=== PATIENT | female | born 1930 | race Caucasian/White ===

== ENCOUNTER 2019-01-01 11:56 | Inpatient (IN) | payer MEDICARE, MEDICAID ==
[~2019-01-01] VITALS: Ht 149.9 cm; Wt 64.0 kg
--- NOTE | 2019-01-01 12:07 | NUR ---
DONAL, FROM [facility]ULT DAY [facility]ARE, C/O ABD PAIN, ZOFRAN 4 MG GIVEN BY EMS, BS171. EPIGASTRIC PAIN 8/10 "FEELS HEAVY". DENIES SOB, DIZZINESS, WEAKNESS. SOME NAUSEA/VOMIT. NO ACUTE DISTRESS NOTED. SKIN INTACT. GREEK-SPEAKING. HOOKED TO MONITOR AND MADE COMFORTABLE. READY FOR EVAL.
--- NOTE | 2019-01-01 12:10 | NUR ---
DR RUDD AT BEDSIDE FOR EVAL
[2019-01-01] MEDS ORDERED: ONDANSETRON HCL/PF 4 MG/2 ML VIAL ONE (12:19)
[2019-01-01] MEDS ORDERED: MORPHINE SULFATE INJ 4 MG/ML DISP.SYRIN ONE (12:19)
[2019-01-01] MEDS ORDERED: MORPHINE SULFATE INJ 2 MG/ML DISP.SYRIN IV ONE (12:30)
[2019-01-01] MEDS ORDERED: IV NS 0.9% 500 ML BAG IV ONE (12:30)
[2019-01-01] MEDS ORDERED: ONDANSETRON HCL/PF 4 MG/2 ML VIAL IVP ONE (12:30)
[2019-01-01 12:37] LABS: BASOPHILS % (AUTO) 0.3 % (0.0-2.0); EOSINOPHILS % (AUTO) 0.5 % (0.0-6.0); HEMATOCRIT 41 % (33-45); HEMOGLOBIN 13.9 g/dL (11.5-14.8); LYMPHOCYTES # (AUTO) 1.4 /CMM (0.8-4.8); LYMPHOCYTES % (AUTO) 11.4 % (20.0-44.0); MEAN CORPUSCULAR HGB CONC 34 g/dl (31.0-36.0); MEAN CORPUSCULAR VOLUME 85 fL (82-100); MONOCYTES # (AUTO) 0.5 /CMM (0.1-1.30); MONOCYTES % (AUTO) 3.9 % (2.0-12.0); NEUTROPHILS # (AUTO) 10.4 /CMM (1.8-8.9); NEUTROPHILS % (AUTO) 83.9 % (43.0-81.0); PLATELET COUNT (AUTO) 255 /CMM (150-450); RED BLOOD CELL COUNT(AUTO) 4.77 MIL/uL (4.0-5.2); WHITE BLOOD COUNT (AUTO) 12.4 K/uL (4.3-11.0)
[2019-01-01 12:38] LABS: CALCIUM, SERUM 9.4 mg/dL (8.5-10.1); CARBON DIOXIDE 26 mmol/L (21-32); CHLORIDE 103 mmol/L (98-107); GLUCOSE 143 mg/dL (74-106); POTASSIUM 3.8 mmol/L (3.5-5.1); SODIUM SERUM 140 mmol/L (136-145); UREA NITROGEN, BLOOD 19 mg/dL (7-18)
[2019-01-01 12:45] LABS: ALANINE AMINOTRANSFERASE 48 U/L (12-78); ALBUMIN 4.1 g/dL (3.4-5.0); ALKALINE PHOSPHATASE 127 U/L (46-116); ASPARTATE AMINOTRANSFERASE 70 U/L (15-37); BILIRUBIN,DIRECT 0.7 mg/dL (0.0-0.2); BILIRUBIN,TOTAL 1.3 mg/dL (0.2-1.0); LIPASE 523 U/L (73-393); TOTAL PROTEIN, SERUM 8.1 g/dL (6.4-8.2)
--- NOTE | 2019-01-01 13:02 | NUR ---
CALL FOR UPDATE Juan Ramon, son-in-law,
--- NOTE | 2019-01-01 13:46 | NUR ---
CALLED FOR BED AND TURNED IN MOVE SHEET
[2019-01-01] MEDS ORDERED: PIPERACILLIN /TAZOBACTAM 3.375 G in IV D5W 50 ML IV ONE (14:00)
--- NOTE | 2019-01-01 14:10 | NUR ---
PT RESTING COMFORTABLY IN BED. NO COMPLAINTS AT THIS TIME. VSS.
[2019-01-01] MEDS ORDERED: PIPERACILLIN /TAZOBACTAM 3.375 G VIAL IV ONE (14:12)
[2019-01-01 14:19] LABS: APPEARANCE,URINE Cloudy (CLEAR); BILIRUBIN,URINE Negative (NEGATIVE); BLOOD, URINE Negative Ery/uL (NEGATIVE); KETONES,URINE Negative (NEGATIVE); LEUKOCYTE ESTERASE ,URINE Negative (NEGATIVE); NITRITE, URINE Negative (NEGATIVE); PROTEIN,URINE 100 mg/dl (NEGATIVE); UGLUCOSE Negative (NEGATIVE); UROBILINOGEN,URINE 0.2 EU/dL (0.2)
[2019-01-01 14:22] LABS: COLOR,URINE Light Yellow (YELLOW)
[2019-01-01 14:29] LABS: BACTERIA,URINE Many /HPF (None Seen); SQUAMOUS EPITHELIAL CELL,UR Rare /HPF (None Seen)
[2019-01-01 14:30] LABS: RBC,URINE 0-2 /HPF (0-2)
--- NOTE | 2019-01-01 14:46 | NUR ---
REPORT GIVEN TO RYAN GOLDSTEIN FOR
--- NOTE | 2019-01-01 14:53 | NUR ---
PT TAKEN TO FLOOR VIA WC
[2019-01-01] MEDS ORDERED: ASPI-1152 PO (15:05)
[2019-01-01] MEDS ORDERED: SIMV40TA5 PO (15:05)
[2019-01-01] MEDS ORDERED: ATEN25TA PO ×2 (15:05→22:57)
[2019-01-01] MEDS ORDERED: METF-440 PO (15:05)
[2019-01-01] MEDS ORDERED: CHOL100040 PO (15:05)
[2019-01-01 15:30] VITALS: BP 126/52
--- NOTE | 2019-01-01 15:30 | NUR ---
MS RN ADMITTING NOTES ADMITTED PT FROM ER WITH DX OF POSSIBLE CHOLECYSTITIS.ALERT AND CONFUSED.WITH HX OF DEMENTIA SAYING SHE WANTS TO GO HOME AND HER WILL PICK HER UP. ORIENTATION GIVEN IN THE UNIT AND USE OF CALL LIGHT. C/O SEVERE ABDOMINAL PAIN IN ER BUT DENIES ANY PAIN OR SOB AT THIS TIME.PT VOMITED 2X IN ER.DENIES FEELING NAUSEA/VOMITING AT THIS TIME.RESPIRATIONS NON LABORED IN ROOM AIR.AMBULATES WITH STANDBY ASSIST. WITH BRP WITH ASSIST.SKIN INTACT.CALL LIGHT PLACED WITHIN REACH.
[2019-01-01 16:00] VITALS: BP 126/52
--- NOTE | 2019-01-01 18:30 | NUR ---
PT COMFORTABLY SLEEPING IN BED DENIES ANY PAIN OR DISTRESS.PT VOMITED 4X IN SMALL AMOUNTS DURING THE SHIFT IN OUR UNIT BEFORE DINNER BUT DENIES ANY DISTRESS OR DISCOMFORT AFTER.BUT PT NOW IS SLEEPING.FAMILY IS AT BEDSIDE AND IS AWARE.WILL MONITOR.
[2019-01-01] MEDS ORDERED: ZOLPIDEM TARTRATE 5 MG TABLET PO PRN (19:00)
[2019-01-01] MEDS ORDERED: MAG HYDROX/AL HYDROX/SIMETH 30 ML UDC PO PRN (19:00)
[2019-01-01] MEDS ORDERED: ONDANSETRON HCL/PF 4 MG/2 ML VIAL IVP PRN (19:00)
[2019-01-01] MEDS ORDERED: Z GUARD REMEDY 2 OZ OINT TP PRN (19:00)
[2019-01-01] MEDS ORDERED: ACETAMINOPHEN 325 MG TABLET PO PRN (19:00)
[2019-01-01] MEDS ORDERED: MAGNESIUM HYDROXIDE 30 ML UDC PO PRN (19:00)
--- NOTE | 2019-01-01 19:20 | NUR ---
RN INITIAL NOTES: RECEIVED REPORT FROM TRISTON Lawrence RN. PT IN BED, AWAKE, A/O X2, ON RA RESPIRATION EVEN AND UNLABORED. PER REPORT, PT VOMITED 3X, IN ER. MET WITH FAMILY AT BED SIDE. SEEN BY DR NORMAN/KERRY, WITH ORDERS FOR CCHO DIET. PT ATE 25% OF MEAL FROM HOME. BLE OFFLOADED. SAFETY PRECAUTIONS FOR FALL INITIATED, CALL LIGHT IN REACH, WILL CONTINUE MONITORING PT.
[2019-01-01 20:00] VITALS: BP 113/66
[2019-01-01] MEDS: PIPERACILLIN /TAZOBACTAM 2.25 G in IV D5W 50 ML IV SCH (20:04)
[2019-01-01] MEDS: IV NS 0.9% 1,000 ML IV PRN (20:04)
--- NOTE | 2019-01-01 21:30 | NUR ---
RN NOTES: ASSISTED BY HAT CHECKER TO THE BATHROOM
--- NOTE | 2019-01-01 22:00 | NUR ---
rn notes: received call from patient's daughter, requesting to have her mother's blood sugar check
--- NOTE | 2019-01-01 22:09 | NUR ---
ACCU CHECK: BLOOD SUGAR CHECK AND RESULT IS 161
[2019-01-01] MEDS ORDERED: FENO54TA PO (22:57)
[2019-01-01] MEDS ORDERED: OLME20TA13 PO (22:57)
--- NOTE | 2019-01-01 23:00 | NUR ---
RN NOTES: SEEN PT SLEEPING AT THIS TIME, APPEARS CALM AND COMFORTABLE NO FACIAL GRIMACE NOTED
[2019-01-02] MEDS: PIPERACILLIN /TAZOBACTAM 2.25 G in IV D5W 50 ML IV SCH ×4 (02:40→20:02)
--- NOTE | 2019-01-02 02:40 | NUR ---
RN NOTES: PT PULLED OUT HER IV ACCESS, PRESSURED DRESSING APPLIED, RESTARTED NEW IV ON RFA G 22 WITH GOOD BLOOD RETURN NOTED, SECURED WITH TRANSPARENT DRESSING, PROPERLY LABELED
[2019-01-02] MEDS: IV NS 0.9% 1,000 ML IV PRN ×2 (04:08→20:56)
--- NOTE | 2019-01-02 06:00 | NUR ---
rn notes: received call from pt's daughter, asking to check pt's blood sugar
--- NOTE | 2019-01-02 06:56 | NUR ---
RN NOTES: BLOOD SUGAR CHECK AND RESULT IS 99, OFFERED JUICE, SNACK BUT PT REFUSED. PT DENIES ANY ABDOMINAL PAIN
--- NOTE | 2019-01-02 07:04 | NUR ---
RN CLOSING NOTES: PT IN BED, NO FACIAL GRIMACE NOTED, APPEARS CALM AND COMFORTABLE, PT DENIES ANY ABDOMINAL PAIN, STILL REFUSING TO EAT. IV ACCESS REMAINS PATENT AND FLUSHING WELL, INFUSING WITH NS AT 125ML/HR. VS REMAINS STABLE, NEEDS ATTENDED. SAFETY PRECAUTIONS FOR FALL REMAINS ENGAGED, CALL LIGHT IN REACH, WILL ENDORSE TO DAY RN FOR CONTINUITY OF CARE.
[2019-01-02 07:24] LABS: BASOPHILS % (AUTO) 0.2 % (0.0-2.0); EOSINOPHILS % (AUTO) 0.4 % (0.0-6.0); HEMATOCRIT 36 % (33-45); HEMOGLOBIN 12.2 g/dL (11.5-14.8); LYMPHOCYTES # (AUTO) 0.8 /CMM (0.8-4.8); LYMPHOCYTES % (AUTO) 5.9 % (20.0-44.0); MEAN CORPUSCULAR HGB CONC 34 g/dl (31.0-36.0); MEAN CORPUSCULAR VOLUME 85 fL (82-100); MONOCYTES # (AUTO) 0.8 /CMM (0.1-1.30); MONOCYTES % (AUTO) 5.7 % (2.0-12.0); NEUTROPHILS # (AUTO) 12.4 /CMM (1.8-8.9); NEUTROPHILS % (AUTO) 87.8 % (43.0-81.0); PLATELET COUNT (AUTO) 203 /CMM (150-450); RED BLOOD CELL COUNT(AUTO) 4.22 MIL/uL (4.0-5.2); WHITE BLOOD COUNT (AUTO) 14.2 K/uL (4.3-11.0)
[2019-01-02 07:40] LABS: ALANINE AMINOTRANSFERASE 557 U/L (12-78); ALBUMIN 3.2 g/dL (3.4-5.0); ALKALINE PHOSPHATASE 163 U/L (46-116); ASPARTATE AMINOTRANSFERASE 481 U/L (15-37); BILIRUBIN,TOTAL 3.8 mg/dL (0.2-1.0); CALCIUM, SERUM 8.8 mg/dL (8.5-10.1); CARBON DIOXIDE 23 mmol/L (21-32); CHLORIDE 104 mmol/L (98-107); CREATININE 0.9 mg/dL (0.6-1.3); GLUCOSE 97 mg/dL (74-106); LIPASE 158 U/L (73-393); MAGNESIUM 1.7 mg/dL (1.8-2.4); PHOSPHORUS 3.2 mg/dL (2.5-4.9); POTASSIUM 3.6 mmol/L (3.5-5.1); SODIUM SERUM 138 mmol/L (136-145); TOTAL PROTEIN, SERUM 6.6 g/dL (6.4-8.2); UREA NITROGEN, BLOOD 16 mg/dL (7-18)
--- NOTE | 2019-01-02 08:00 | NUR ---
RN AM NOTES: RECEIVED PT IN BED, AWAKE, A/O X2, ON RA RESPIRATION EVEN AND UNLABORED. NO NAUSEA AND VOMITING EPISODE AT THIS TIME.PT TOLERATED BREAKFAST WELL.DENIES ANY PAIN OR DISTRESS.BLE OFFLOADED. SEEN BY DR NORMAN WITH ORDERS FOR MRCP AND MRI PROCEDURE.SAFETY PRECAUTIONS FOR FALL INITIATED, CALL LIGHT IN REACH, WILL CONTINUE MONITORING PT.
[2019-01-02 08:10] VITALS: BP 102/55
--- NOTE | 2019-01-02 09:00 | NUR ---
PT WAS SEEN BY DR NORMAN WITH ORDERS:IF MRCP RESULT IS POSITIVE ,FOR PT TO HAVE ERCP TOMORROW AND PUT PT ON NPO POST MIDNIGHT.
[2019-01-02] MEDS: Magnesium 1GM/D5W 100ML PREMIX 100 ML IV SCH ×2 (10:49→11:43)
[2019-01-02] MEDS ORDERED: ATENOLOL 25 MG TABLET PO SCH (11:30)
[2019-01-02 11:35] LABS: THYROID STIMULATING HORMONE 0.508 uIU/mL (0.358-3.74)
--- NOTE | 2019-01-02 11:48 | NUR ---
PT IS NPO FOR NOW DUE TO THE PENDING MRCP AND MRI PROCEDURE.HELD AM PO MEDS AND WILL ADMINISTER LATER.
--- NOTE | 2019-01-02 12:55 | NUR ---
PT IS PRESENTLY ON NPO FOR MRI AND MRCP PROCEDURE.WILL ADMINISTER TRICOR LATER AFTER THE PROCEDURE.
--- NOTE | 2019-01-02 15:30 | NUR ---
Pt came back from MRI/MRCP procedure.Pt tolerated procedure well.
[2019-01-02] MEDS: METFORMIN 500 MG TABLET PO SCH (15:58)
[2019-01-02] MEDS: CHOLECALCIFEROL 1,000 UNIT TABLET (VIT D3) PO SCH (15:58)
[2019-01-02] MEDS: ASPIRIN EC 81 MG TABLET.DR PO SCH (15:59)
[2019-01-02] MEDS: Fenofibrate 48 MG TABLET PO SCH (15:59)
--- NOTE | 2019-01-02 16:07 | NUR ---
STILL AWAITING FOR MRI/MRCP RESULT
[2019-01-02] MEDS: ATENOLOL 25 MG TABLET PO SCH (16:58)
[2019-01-02] MEDS: LOSARTAN POTASSIUM 50 MG TABLET PO SCH (16:58)
[2019-01-02] MEDS: SIMVASTATIN 40 MG TABLET PO SCH (17:11)
[2019-01-02 17:30] VITALS: BP 113/55
--- NOTE | 2019-01-02 17:51 | NUR ---
MRI /MRCP RESULT IS IN AND RELAYED THE RESULT TO DR NORMAN WITH ORDER FOR SURGICAL CONSULT-NO ERCP PROCEDURE.CALLED DR DUMONT AND MADE AWARE AND STATED THAT HE WILL INFORM DR MALGORZATA PARRA HIMSELF FOR SURGICAL CONSULT.INFORMED KENYA BELLO WELL.
--- NOTE | 2019-01-02 19:20 | NUR ---
rn initial notes: received report from kalen geiger rn. pt in bed, awake, a/o x2-3, on ra denies any abdominal pain, pt able to eat dinner and does not complain of any pain after eating. iv access patent and flushing well, infusing with ns at 125ml/hr. iv access covered with kerlix for protection. awaiting surgery consult as recommended by gi md. safety precautions for fall initiated, call light in reach, will continue monitoring pt.
--- NOTE | 2019-01-02 19:35 | NUR ---
rn notes: s/b julieta miner, surgical consult, and nikita miner id. per surgery miner, julieta, will do hida scan first, routine, keep on low fat diet for now, then npo before hida scan in am. julieta miner spoked with pt's daughter hafsa [phone]. discussed plan of care.
--- NOTE | 2019-01-02 19:53 | NUR ---
RN NOTES: CONTACTED PT'S DAUGHTER VINCENT TEJEDA, HAS POWER OF ATTY TO MAKE DECISION FOR THE PT, GIVEN HER FULL CONSENT FOR HIDA SCAN, TELEPHONE CONSENT OBTAINED , WITNESSED BY RVI RN
[2019-01-02 20:00] VITALS: BP 95/57
--- NOTE | 2019-01-02 22:08 | NUR ---
rn notes: checked pt's blood sugar per family request, blood sugar result is 106
--- NOTE | 2019-01-02 23:04 | NUR ---
RN NOTES: CONTACTED PT'S DAUGHTER, VINCENT TEJEDA, , EXPLAINED GI RECOMMENDATIONS FOR ERCP, SCHEDULED TOMORROW AM AT 0900, PT'S DAUGHTER WAS THE POA, GIVING HER FULL CONSENT FOR THE PROCEDURE FOR HER MOTHER, RISK AND BENEFITS EXPLAINED, TELEPHONE CONSENT WITNESSED/COSIGNED BY RYAN MARIEE.
--- NOTE | 2019-01-02 23:05 | NUR ---
RN NOTES: CONTACTED PT'S DAUGHTER, VINCENT TEJEDA, , OBTAINED CONSENT FOR BLOOD TRANSFUSION IN CASE OF EMERGENCY, PT'S DAUGHTER GIVING FULL CONSENT, COSIGNED WITNESSED BY RYAN MARIEE
[2019-01-03] MEDS: PIPERACILLIN /TAZOBACTAM 2.25 G in IV D5W 50 ML IV SCH ×2 (01:49→08:02)
[2019-01-03] MEDS: IV NS 0.9% 1,000 ML IV PRN (04:38)
--- NOTE | 2019-01-03 05:47 | NUR ---
rn notes: blood sugar checked per pt's daughter request, result obtained is 100.
[2019-01-03 06:03] VITALS: BP 117/64
--- NOTE | 2019-01-03 06:42 | NUR ---
rn closing notes: pt in bed, remains npo for ercp at 0900am per dr zamora, and kseniaa scan per julieta back wedger, all consents secured attached in pt's chart. iv access remains patent and flushing well, infusing with ns at 125ml/hr. iv access free from s/s of iv infiltration. vs remains stable, needs attended. safety precautions for fall initiated, call light in reach, will endorse to day rn for continuity of care.
--- NOTE | 2019-01-03 07:05 | NUR ---
RN NOTES: JEN FROM [facility] CAME TO SEE IF CONSENT IS READY, INFORMED JEN THAT PT IS GOING FOR ERCP AT 0900AM, PER JEN HE WILL JUST COME BACK TO DO HIDA SCAN, PT IS SCHEDULED FOR ERCP AND UNSURE OF THE DURATION OF ERCP PROCEDURE.
--- NOTE | 2019-01-03 07:20 | NUR ---
RN NOTES: RECEIVED CALL FROM PT'S DAUGHTER VINCENT TEJEDA , OBTAINED CONSENT FOR BLOOD TRANSFUSION IN CASE OF EMERGENCY, DAUGHTER GIVEN FULL CONSENT, COSIGNED/CO-WITNESSED BY RN TARA
[2019-01-03 07:28] LABS: BASOPHILS % (AUTO) 0.2 % (0.0-2.0); EOSINOPHILS % (AUTO) 1.9 % (0.0-6.0); HEMATOCRIT 34 % (33-45); HEMOGLOBIN 11.5 g/dL (11.5-14.8); LYMPHOCYTES # (AUTO) 0.7 /CMM (0.8-4.8); LYMPHOCYTES % (AUTO) 8.8 % (20.0-44.0); MEAN CORPUSCULAR HGB CONC 34 g/dl (31.0-36.0); MEAN CORPUSCULAR VOLUME 85 fL (82-100); MONOCYTES # (AUTO) 0.6 /CMM (0.1-1.30); MONOCYTES % (AUTO) 7.7 % (2.0-12.0); NEUTROPHILS # (AUTO) 6.4 /CMM (1.8-8.9); NEUTROPHILS % (AUTO) 81.4 % (43.0-81.0); PLATELET COUNT (AUTO) 191 /CMM (150-450); RED BLOOD CELL COUNT(AUTO) 3.96 MIL/uL (4.0-5.2); WHITE BLOOD COUNT (AUTO) 7.9 K/uL (4.3-11.0)
[2019-01-03 07:42] LABS: CALCIUM, SERUM 8.3 mg/dL (8.5-10.1); CARBON DIOXIDE 21 mmol/L (21-32); CHLORIDE 107 mmol/L (98-107); CREATININE 0.9 mg/dL (0.6-1.3); GLUCOSE 95 mg/dL (74-106); MAGNESIUM 2.1 mg/dL (1.8-2.4); PHOSPHORUS 2.5 mg/dL (2.5-4.9); POTASSIUM 3.7 mmol/L (3.5-5.1); SODIUM SERUM 139 mmol/L (136-145); UREA NITROGEN, BLOOD 12 mg/dL (7-18)
[2019-01-03 08:00] VITALS: BP 117/64
[2019-01-03] MEDS: LOSARTAN POTASSIUM 50 MG TABLET PO SCH (08:02)
[2019-01-03] MEDS: ASPIRIN EC 81 MG TABLET.DR PO SCH (08:02)
[2019-01-03] MEDS: METFORMIN 500 MG TABLET PO SCH (08:03)
[2019-01-03] MEDS: ATENOLOL 25 MG TABLET PO SCH (08:03)
[2019-01-03] MEDS: Fenofibrate 48 MG TABLET PO SCH (08:04)
[2019-01-03 09:04] LABS: ALANINE AMINOTRANSFERASE 336 U/L (12-78); ALBUMIN 2.9 g/dL (3.4-5.0); ALKALINE PHOSPHATASE 207 U/L (46-116); ASPARTATE AMINOTRANSFERASE 180 U/L (15-37); BILIRUBIN,TOTAL 2.8 mg/dL (0.2-1.0); CALCIUM, SERUM 8.5 mg/dL (8.5-10.1); CARBON DIOXIDE 22 mmol/L (21-32); CHLORIDE 107 mmol/L (98-107); GLUCOSE 94 mg/dL (74-106); POTASSIUM 3.8 mmol/L (3.5-5.1); SODIUM SERUM 140 mmol/L (136-145); TOTAL PROTEIN, SERUM 6.3 g/dL (6.4-8.2); UREA NITROGEN, BLOOD 12 mg/dL (7-18)
--- NOTE | 2019-01-03 09:16 | NUR ---
PER DANIEL FROM OR : ERCP CANCELLED BY DUE TO MRCP WAS NEGATIVE
--- NOTE | 2019-01-03 11:30 | NUR ---
patient picked up by radiology staff for HIDA
[2019-01-03] MEDS: PIPERACILLIN /TAZOBACTAM 3.375 G in IV D5W 100 ML IV SCH (12:31)
[2019-01-03 16:00] VITALS: BP 123/77
--- NOTE | 2019-01-03 16:05 | NUR ---
iv line noted leaking and removed. A new line inserted to left wrist g 22. Flushing well.
[2019-01-03] MEDS: SIMVASTATIN 40 MG TABLET PO SCH (17:54)
--- NOTE | 2019-01-03 18:22 | NUR ---
pt in bed, in stable condition on room air with no complain of pain. Was able to tolerate regular food well.iv access L wrist 22g patent and flushing well, infusing with ns at 125ml/hr. vs remains stable, needs attended. No results for HIDA at this time. safety precautions for fall initiated, call light in reach, will endorse to next shift NYASIA. Once HIDA results posted inform Zachary Bourne. Patient may have surgery.
--- NOTE | 2019-01-03 19:52 | NUR ---
MS RN NOTES RECEIVED PATIENT AWAKE IN BED WITH NO DISTRESS NOTED. CALL LIGHT WITHIN REACH. FAMILY AT BEDSIDE. NO C/O PAIN OR DISCOMFORT. PERIPHERAL LINE INTACT AND PATENT. BED IN LOW LOCK SETTING. ROOM FREE OF CLUTTER AND BELONGINGS KEPT NEAR BEDSIDE. WILL CONTINUE TO MONITOR.
[2019-01-03 20:35] VITALS: BP 151/74
[2019-01-04] MEDS: PIPERACILLIN /TAZOBACTAM 3.375 G in IV D5W 100 ML IV SCH ×2 (00:09→11:49)
--- NOTE | 2019-01-04 06:39 | NUR ---
MS RN NOTES PATIENT ASLEEP IN BED WITH NO DISTRESS NOTED. CALL LIGHT WITHIN REACH. ALL DUE MEDS GIVEN ORDERED WITH NO ASE NOTED. NO C/O PAIN OR DISCOMFORT. PERIPHERAL LINE REMAINS INTACT AND PATENT. BED IN LOW LOCK SETTING. ALL BELONGINGS KEPT NEAR BEDSIDE. BED ALARM ON AND FUNCTIONING PROPERLY. WILL CONTINUE TO MONITOR.
--- NOTE | 2019-01-04 07:50 | NUR ---
PATIENT ACCIDENTALLY PULED OUT IV ACCESS.
[2019-01-04 08:00] VITALS: BP 123/71
[2019-01-04] MEDS: Fenofibrate 48 MG TABLET PO SCH (08:11)
[2019-01-04] MEDS: ATENOLOL 25 MG TABLET PO SCH (08:11)
[2019-01-04] MEDS: LOSARTAN POTASSIUM 50 MG TABLET PO SCH (08:12)
[2019-01-04] MEDS: METFORMIN 500 MG TABLET PO SCH (08:12)
[2019-01-04] MEDS: ASPIRIN EC 81 MG TABLET.DR PO SCH (08:12)
[2019-01-04 08:22] VITALS: BP 123/71
--- NOTE | 2019-01-04 10:00 | NUR ---
PATIENT TAKEN TO RADIOLOGY
--- NOTE | 2019-01-04 10:20 | NUR ---
PT BACK TO UNIT. NO DISTRESS NOTED .
--- NOTE | 2019-01-04 10:34 | NUR ---
RECEIVED CALL FROM LAB. BLOOD CULTURE POSITIVE
--- NOTE | 2019-01-04 12:10 | NUR ---
a new IV access to left forearm g22.
--- NOTE | 2019-01-04 14:20 | NUR ---
DR FIDEL BURR WITH PATIENT'S FAMILY OVER THE PHONE ABOUT SURGERY
--- NOTE | 2019-01-04 14:45 | NUR ---
PAGED DR. FIDEL Mack. THAT FAMILY AGREED WITH SURGERY
[2019-01-04 15:03] LABS: BASOPHILS % (AUTO) 0.4 % (0.0-2.0); EOSINOPHILS % (AUTO) 3.5 % (0.0-6.0); HEMATOCRIT 36 % (33-45); HEMOGLOBIN 12.2 g/dL (11.5-14.8); LYMPHOCYTES % (AUTO) 19.2 % (20.0-44.0); MEAN CORPUSCULAR HGB CONC 34 g/dl (31.0-36.0); MEAN CORPUSCULAR VOLUME 85 fL (82-100); MONOCYTES # (AUTO) 0.5 /CMM (0.1-1.30); MONOCYTES % (AUTO) 9.3 % (2.0-12.0); NEUTROPHILS # (AUTO) 3.4 /CMM (1.8-8.9); NEUTROPHILS % (AUTO) 67.6 % (43.0-81.0); PLATELET COUNT (AUTO) 207 /CMM (150-450); RED BLOOD CELL COUNT(AUTO) 4.28 MIL/uL (4.0-5.2)
[2019-01-04 15:17] LABS: ALANINE AMINOTRANSFERASE 216 U/L (12-78); ALKALINE PHOSPHATASE 268 U/L (46-116); ASPARTATE AMINOTRANSFERASE 78 U/L (15-37); BILIRUBIN,TOTAL 1.8 mg/dL (0.2-1.0); CALCIUM, SERUM 8.8 mg/dL (8.5-10.1); CARBON DIOXIDE 22 mmol/L (21-32); CHLORIDE 106 mmol/L (98-107); CREATININE 0.9 mg/dL (0.6-1.3); GLUCOSE 139 mg/dL (74-106); POTASSIUM 3.6 mmol/L (3.5-5.1); SODIUM SERUM 140 mmol/L (136-145); TOTAL PROTEIN, SERUM 6.6 g/dL (6.4-8.2); UREA NITROGEN, BLOOD 13 mg/dL (7-18)
--- NOTE | 2019-01-04 15:41 | NUR ---
POSSIBLE SURGERY FOR TOMORROW. NPO AFTER MIDNIGHT TONIGHT. CONSENT SIGHED BY DAUGHTER WHO IS POWER OF ARTIFICIAL FOLIAGE ARRANGER
[2019-01-04 16:00] VITALS: BP 143/98
[2019-01-04] MEDS: SIMVASTATIN 40 MG TABLET PO SCH (17:26)
--- NOTE | 2019-01-04 18:36 | NUR ---
PATIENT WATCHING TV IN BED WITH NO DISTRESS NOTED. CALL LIGHT WITHIN REACH. ALL DUE MEDS GIVEN ORDERED WITH NO ASE NOTED.ALL NEED ATTENDED. PATIENT KEPT CLEAN AND COMFORTABLE. NO C/O PAIN OR DISCOMFORT.IV LINE INTACT AND PATENT.NPO AFTER MIDNIGHT FOR POSSIBLE SURGERY. BED IN LOW LOCKED POSITION.CALL LIGHT WITHIN REACH.WILL ENDORSE TO NEXT SHIFT.
--- NOTE | 2019-01-04 19:30 | NUR ---
RN MS OPENING NOTES RECEIVED PATIENT IN BED, ALERT AND ORIENTED X2, VERBALLY RESPONSIVE, ABLE TO MAKE NEEDS KNOWN. NICARAGUAN/BRITISH SPEAKER. CAN UNDERSTAND LITTLE SWISS. BREATHING EVEN AND UNLABORED. NO SOB NOTED. TOLERATING ROOM AIR. CURRENTLY WITH NO COMPLAINTS OF PAIN OR DISCOMFORT. NO FACIAL GRIMACING. IV ON LEFT WRIST G#22 INTACT AND PATENT WITH IVF INFUSING. SKIN DRY AND WARM TO TOUCH. AFEBRILE. PATIENT IS AMBULATORY WITH STAND BY ASSIST. ALL OTHER NEEDS MET. SAFETY MEASURES IN PLACE. CALL LIGHT WITHIN REACH. WILL CONTINUE TO MONITOR.
[2019-01-04 20:00] VITALS: BP 136/70
--- NOTE | 2019-01-04 20:00 | NUR ---
RN MS NOTES DR. PARRA SAW PATIENT. TOOK DAUGHTER'S PHONE NUMBER AND LEFT. NO ORDERS MADE.
--- NOTE | 2019-01-04 21:00 | NUR ---
RN MS NOTES DR. PARRA CALLED UNIT AND INQUIRED IF PATIENT IS NPO. INFORMED DR. PARRA THAT PATIENT WILL BE NPO AFTER MIDNIGHT. DR. PARRA STATED OK. ALSO PER DR. PARRA, OBTAIN CONSENT FOR LAPAROSCOPIC CHOLECYSTECTOMY, POSSIBLE OPEN, POSSIBLE INTRAOPERATIVE CHOLANGIOGRAM, POSSIBLE LIVER BIOPSY. CONSENTS ALREADY FILLED OUT DURING DAY SHIFT, WITH VINCENT (DTR)'S SIGNATURE.
[2019-01-05] MEDS: PIPERACILLIN /TAZOBACTAM 3.375 G in IV D5W 100 ML IV SCH ×2 (00:16→11:42)
--- NOTE | 2019-01-05 00:38 | NUR ---
RN MS NOTES PATIENT PULLED OUT IV. NEW IV ACCESS STARTED ON THE RIGHT HAND G#22. GOOD BLOOD RETURN, PATENT. WILL CONTINUE TO MONITOR.
--- NOTE | 2019-01-05 04:28 | NUR ---
RN MS NOTES PATIENT ACCIDENTLY PULLED OUT IV AGAIN TRYING TO GO TO THE BATHROOM. NEW IV ACCESS STARTED ON THE LEFT AC G#20. GOOD BLOOD RETURN. WILL CONTINUE TO MONITOR.
[2019-01-05] MEDS: IV NS 0.9% 1,000 ML IV PRN ×2 (06:25→17:48)
--- NOTE | 2019-01-05 06:51 | NUR ---
RN MS CLOSING NOTES PATIENT RESTING IN BED. NO ACUTE CHANGES THROUGHOUT SHIFT. BREATHING EVEN AND UNLABORED. NO SOB NOTED. TOLERATING ROOM AIR. CURRENTLY WITH NO COMPLAINTS OF PAIN OR DISCOMFORT. NO FACIAL GRIMACING. IV ON LEFT AC #20 INTACT AND PATENT WITH IVF INFUSING. KEPT CLEAN DRY AND COMFORTABLE. ALL OTHER NEEDS MET. SAFETY MEASURES IN PLACE. CALL LIGHT WITHIN REACH. WILL ENDORSE TO ONCOMING NURSE FOR NYASIA.
[2019-01-05 08:00] VITALS: BP 138/76
[2019-01-05] MEDS: METFORMIN 500 MG TABLET PO SCH (09:00)
[2019-01-05] MEDS: ATENOLOL 25 MG TABLET PO SCH (09:00)
[2019-01-05] MEDS: LOSARTAN POTASSIUM 50 MG TABLET PO SCH (09:00)
[2019-01-05] MEDS: Fenofibrate 48 MG TABLET PO SCH (09:00)
[2019-01-05] MEDS: ASPIRIN EC 81 MG TABLET.DR PO SCH (09:00)
--- NOTE | 2019-01-05 11:50 | NUR ---
held lunch per OR staff. Surgery at 1430 today
[2019-01-05] MEDS: CHOLECALCIFEROL 1,000 UNIT TABLET (VIT D3) PO SCH (12:00)
--- NOTE | 2019-01-05 12:43 | NUR ---
received call from Dr. Conde ; surgery to be cancelled for today. Pt can have clear liquid diet for now.
--- NOTE | 2019-01-05 13:03 | NUR ---
dr Pike informed about cancelation of surgery
--- NOTE | 2019-01-05 14:47 | NUR ---
patient picked up by OR staff for surgery . Family informed . Patient in stable condition on room air, A/O x2
[2019-01-05] MEDS ORDERED: LIDOCAINE HCL/PF 1% 30 ML SDV ONE (14:59)
[2019-01-05] MEDS ORDERED: BUPIVACAINE MPF 0.5% W/EPI INJ 30 ML VIAL ONE (14:59)
[2019-01-05] MEDS ORDERED: FENTANYL PF 100MCG/2ML AMPUL ONE (16:26)
[2019-01-05] MEDS ORDERED: LABETALOL HCL IV 100MG VIAL ONE (16:26)
[2019-01-05] MEDS ORDERED: HYDROMORPHONE 1 MG/1 ML DISP.SYRIN ONE (17:04)
[2019-01-05] MEDS: SIMVASTATIN 40 MG TABLET PO SCH (17:48)
[2019-01-05] MEDS: MORPHINE SULFATE INJ 2 MG/ML DISP.SYRIN IV PRN ×2 (17:49→22:29)
[2019-01-05 18:10] VITALS: BP 158/81
--- NOTE | 2019-01-05 18:10 | NUR ---
TD/RN REPORT FROM OR REPORT GIVEN BY OR NURSE MASON FOR PT ADMITTED TO BE OBSERVED FOR 24 HOURS S/P LAPAROSCOPIC CHOLECYSTECTOMY PERFORMED BY DR. PARRA. PT ARRIVED VIA BED. SURGICAL SITE CLEAN AND DRY, NAI DRAIN INTACT WITH SEROSANGUINEOUS DRAINAGE NOTED. IV SITE FLUSHED PATENT, CONTINUED INFUSION OF NS @ 125CC/HR. PT PLACED ON 2L O2 VIA N/C SATURATING @ 100%, TELE MONITOR PLACED, SINUS RHYTHM. PT A/O X 4 FORGETFUL COMPLAINT OF ABDOMINAL PAIN RATED 9/10. WILL BE GIVEN PRESCRIBED PRN MEDS. FAMILY MEMBERS AT BEDSIDE. CL WITHIN REACHED AND SAFETY MAINTAINED.
--- NOTE | 2019-01-05 19:00 | NUR ---
BRITTNEY RN OPENING NOTES RECEIVED PATIENT IN BED. ALERT AND ORIENTED X2, FORGETFUL. REPORT FROM DAY SHIFT STATED S/P LAPAROSCOPIC CHOLECYSTECTOMY PERFORMED BY DR. PARRA. SURGICAL SITE CHECKED, CLEAN AND DRY, NAI DRAIN INTACT WITH SEROSANGUINEOUS DRAINAGE NOTED. IV SITE L AC 20G, FLUSHED PATENT, CONTINUED INFUSION OF NS @ 125ML/HR, NO INFILTRATION NOTED, IV SITE C/D/I. PATIENT ON 2L O2 VIA N/C SATURATING @ 99%, TELE MONITOR PLACED, SINUS RHYTHM WITH HR 84. COMPLAINS OF ABDOMINAL PAIN RATED 5/10. WILL BE GIVEN PRESCRIBED PRN MEDS. CALL LIGHT WITHIN REACH AND SAFETY MEASURES IN PLACE. WILL CONTINUE TO MONITOR PATIENT CLOSELY.
--- NOTE | 2019-01-05 19:21 | NUR ---
TD/RN AM SHIFT END REPORT NO ACUTE CHANGE OF CONDITION NOTED SINCE PT WAS UPGRADED TO [facility] FOR OBSERVATION. ALL NEEDS MET. PT ENDORSED TO PM NURSE TO CONTINUE CARE. CL WITHIN REACHED AND SAFETY MAINTAINED.
[2019-01-05 20:00] VITALS: BP_SYST 153; BP_SYST 168; BP_DIAS 85; BP_DIAS 97
[2019-01-06] VITALS: BP 140/76
[2019-01-06] MEDS ORDERED: PIPERACILLIN /TAZOBACTAM 3.375 G VIAL IV ONE (00:24)
[2019-01-06] MEDS: PIPERACILLIN /TAZOBACTAM 3.375 G in IV D5W 100 ML IV SCH ×3 (00:29→19:53)
[2019-01-06 04:00] VITALS: BP 125/65
[2019-01-06] MEDS: IV NS 0.9% 1,000 ML IV PRN (05:20)
[2019-01-06 06:20] LABS: BASOPHILS % (AUTO) 0.2 % (0.0-2.0); EOSINOPHILS % (AUTO) 0.2 % (0.0-6.0); HEMATOCRIT 37 % (33-45); HEMOGLOBIN 12.4 g/dL (11.5-14.8); LYMPHOCYTES # (AUTO) 1.3 /CMM (0.8-4.8); LYMPHOCYTES % (AUTO) 12.4 % (20.0-44.0); MEAN CORPUSCULAR HGB CONC 34 g/dl (31.0-36.0); MEAN CORPUSCULAR VOLUME 85 fL (82-100); MONOCYTES # (AUTO) 0.9 /CMM (0.1-1.30); MONOCYTES % (AUTO) 8.3 % (2.0-12.0); NEUTROPHILS # (AUTO) 8.2 /CMM (1.8-8.9); NEUTROPHILS % (AUTO) 78.9 % (43.0-81.0); PLATELET COUNT (AUTO) 209 /CMM (150-450); RED BLOOD CELL COUNT(AUTO) 4.32 MIL/uL (4.0-5.2); WHITE BLOOD COUNT (AUTO) 10.4 K/uL (4.3-11.0)
[2019-01-06 06:38] LABS: ALANINE AMINOTRANSFERASE 178 U/L (12-78); ALBUMIN 2.9 g/dL (3.4-5.0); ALKALINE PHOSPHATASE 259 U/L (46-116); ASPARTATE AMINOTRANSFERASE 83 U/L (15-37); BILIRUBIN,TOTAL 1.3 mg/dL (0.2-1.0); CALCIUM, SERUM 8.6 mg/dL (8.5-10.1); CARBON DIOXIDE 23 mmol/L (21-32); CHLORIDE 106 mmol/L (98-107); CREATININE 0.9 mg/dL (0.6-1.3); GLUCOSE 106 mg/dL (74-106); POTASSIUM 3.9 mmol/L (3.5-5.1); SODIUM SERUM 140 mmol/L (136-145); TOTAL PROTEIN, SERUM 6.4 g/dL (6.4-8.2); UREA NITROGEN, BLOOD 13 mg/dL (7-18)
--- NOTE | 2019-01-06 06:38 | NUR ---
BRITTNEY RN CLOSING NOTES PATIENT SLEEPING IN BED, EASY TO AROUSE. ALERT AND ORIENTED X2, FORGETFUL. SURGICAL SITE CLEAN AND DRY, NAI DRAIN INTACT WITH SEROSANGUINEOUS DRAINAGE NOTED. IV SITE L AC 20G, FLUSHED PATENT, CONTINUED INFUSION OF NS @ 125ML/HR, NO INFILTRATION NOTED, IV SITE C/D/I. PATIENT ON 2L O2 VIA N/C SATURATING @ 98%. ON TELE MONITOR, SINUS RHYTHM WITH HR 67. COMPLAINS OF ABDOMINAL PAIN RATED 5/10. WILL BE GIVEN PRESCRIBED PRN MEDS. CALL LIGHT WITHIN REACH AND SAFETY MEASURES MAINTAINED. ALL MD ORDERS ATTENDED. NO ACUTE CHANGES THROUGHOUT SHIFT. WILL ENDORSE TO DAY SHIFT RN FOR [place].
--- NOTE | 2019-01-06 07:30 | NUR ---
RN NOTES RECEIVED PATIENT IN BED, AWAKE, ALERT AND ORIENTEDX1-2, NOT ON ANY FORM OF DISTRESS, ABLE TO MAKE NEEDS KNOWN BUT EXPRESSES SELF BETTER IN IVORIAN LANGUAGE. ON OXYGEN SUPPORT VIA NASAL CANNULA AT 2LPM, SATING WELL. PATIENT WITH NO COMPLAINTS OF PAIN BUT NOTED WITH GUARDING BEHAVIOR AND FACIAL GRIMACE- WILL ADMINISTER PAIN MEDICINE IN DUE. PATIENT SINUS RHYTHM ON THE MONITOR WITH HR ON THE 70'S. NAI DRAIN IN PLACE AND INTACT WITH SEROSANGUINEOUS DRAINAGE NOTED, MODERATE IN AMOUNT. IV ACCESS NOTED ON THE LAC G 20: IN PLACE AND INTACT: WITH ONGOING IVF OF NS @ 125CC/HR. SAFETY MEASURES OBSERVED AND MAINTAINED, BEDD LOW AND LOCKED POSITION, BED ALARM ON SRX2 RAISED, PATIENT ENCOURAGE TO CALL FOR HELP/ ASSISTANCE, CALL LIGHT PLACED WITHIN REACHED, WILL CONTINUE TO MONITOR AND ANTICIPATED NEEDS.
[2019-01-06 08:00] VITALS: BP 169/71
[2019-01-06] MEDS: ASPIRIN EC 81 MG TABLET.DR PO SCH (08:30)
[2019-01-06] MEDS: ATENOLOL 25 MG TABLET PO SCH (08:30)
[2019-01-06] MEDS: CHOLECALCIFEROL 1,000 UNIT TABLET (VIT D3) PO SCH (08:30)
[2019-01-06] MEDS: LOSARTAN POTASSIUM 50 MG TABLET PO SCH (08:31)
[2019-01-06] MEDS: METFORMIN 500 MG TABLET PO SCH (08:31)
[2019-01-06] MEDS: Fenofibrate 48 MG TABLET PO SCH (08:32)
[2019-01-06 10:00] VITALS: BP 150/75
[2019-01-06] MEDS: MORPHINE SULFATE INJ 2 MG/ML DISP.SYRIN IV PRN ×2 (10:25→17:01)
[2019-01-06 16:00] VITALS: BP 178/78
[2019-01-06] MEDS: SIMVASTATIN 40 MG TABLET PO SCH (17:01)
--- NOTE | 2019-01-06 19:17 | NUR ---
RN NOTES ENDORSED PATIENT FOR CONTINUITY OF CARE. NOT ON ANY FORM OF DISTRESS. ALL NURSING NEEDS ATTENDED AND MET. SAFETY MEASURES IN PLACE AT ALL TIME. CALL LIGHT WITHIN REACH
--- NOTE | 2019-01-06 19:50 | NUR ---
RN M/S NOTE RECEIVED PATIENT RESTING IN BED, AOX3, ON ROOM AIR NO S/SX OF RESPIRATORY OR CARDIAC DISTRESS NOTED, RAC #24G SL PATENT FLUSHING WELL, SKIN KEPT CLEAN AND DRY COMPLAINTS OF TOLERABLE ABDOMINAL PAIN 2, REPOSITIONED FOR COMFORT, , SAFETY MEASURES MAINTAINED, ASPIRATION PRECAUTION EMPHASIZED, BED IN LOW LOCKED POSITION WILL CONTINUE TO MONITOR FOR ANY CHANGES, BED IN LOW LOCKED POSITION, CALL LIGHT WITHIN REACH, WILL CONTINUE TO MONITOR ACCORDINGLY.
[2019-01-07 00:03] VITALS: BP 178/78
[2019-01-07] MEDS: MORPHINE SULFATE INJ 2 MG/ML DISP.SYRIN IV PRN ×4 (01:33→21:11)
[2019-01-07] MEDS: PIPERACILLIN /TAZOBACTAM 3.375 G in IV D5W 100 ML IV SCH ×3 (03:43→20:09)
--- NOTE | 2019-01-07 06:54 | NUR ---
RN NOTES ALL NEEDS ATTENDED AND MET KEPT CLEAN DRY AND COMFORTABLE, NAI DRAINS 5O CC PINKISH RED DRAINAGE. KEPT AREA CLEAN AND DRYM NO SIGNS OF INFECTION, ABLE TO REST AND SLEEP WITH LONG INTERVALS. WILL ENDORSE TO AM NURSE FOR CONTINUITY OF CARE.
--- NOTE | 2019-01-07 07:30 | NUR ---
RN OPENING NOTES PATIENT IN BED SLEEPING COMFORTABLY. EASILY AROUSABLE. PATIENT IS ALERT AND ORIENTED X2-3 WITH FORGETFULNESS. NO PAIN OR ACUTE DISTRESS AT THIS TIME. RESPIRATION EVEN AND UNLABORED. SKIN IS DRY WARM TO TOUCH. PATIENT IS NOTED WITH LEFT AC #20 GAUGE. PATENT AND FLUSHING WELL. NAI IN INTACT AND DRAINING WELL. NOTED WITH SLIGHT REDDISH OUTPUT. ALL NEEDS ANTICIPATED. CALL LIGHT WITHIN REACHED. BED IS LOCKED AND IN LOW POSITION. SAFETY MEASURES OBSERVED. PLAN OF CARE DISCUSSED WITH PATIENT. WILL CONTINUE TO MONITOR.
[2019-01-07 08:00] VITALS: BP 170/81
[2019-01-07] MEDS: Fenofibrate 48 MG TABLET PO SCH (08:34)
[2019-01-07] MEDS: METFORMIN 500 MG TABLET PO SCH (08:34)
[2019-01-07] MEDS: LOSARTAN POTASSIUM 50 MG TABLET PO SCH (08:34)
[2019-01-07] MEDS: ASPIRIN EC 81 MG TABLET.DR PO SCH (08:34)
[2019-01-07] MEDS: ATENOLOL 25 MG TABLET PO SCH (08:34)
[2019-01-07 10:08] LABS: BASOPHILS % (AUTO) 0.4 % (0.0-2.0); EOSINOPHILS % (AUTO) 1.8 % (0.0-6.0); HEMATOCRIT 38 % (33-45); LYMPHOCYTES # (AUTO) 1.7 /CMM (0.8-4.8); LYMPHOCYTES % (AUTO) 17.9 % (20.0-44.0); MEAN CORPUSCULAR HGB CONC 34 g/dl (31.0-36.0); MEAN CORPUSCULAR VOLUME 85 fL (82-100); MONOCYTES # (AUTO) 0.7 /CMM (0.1-1.30); MONOCYTES % (AUTO) 7.6 % (2.0-12.0); NEUTROPHILS % (AUTO) 72.3 % (43.0-81.0); PLATELET COUNT (AUTO) 223 /CMM (150-450); RED BLOOD CELL COUNT(AUTO) 4.48 MIL/uL (4.0-5.2); WHITE BLOOD COUNT (AUTO) 9.6 K/uL (4.3-11.0)
[2019-01-07 10:22] LABS: ALANINE AMINOTRANSFERASE 179 U/L (12-78); ALKALINE PHOSPHATASE 243 U/L (46-116); ASPARTATE AMINOTRANSFERASE 80 U/L (15-37); BILIRUBIN,TOTAL 1.3 mg/dL (0.2-1.0); CALCIUM, SERUM 9.1 mg/dL (8.5-10.1); CARBON DIOXIDE 25 mmol/L (21-32); CHLORIDE 103 mmol/L (98-107); CREATININE 0.8 mg/dL (0.6-1.3); GLUCOSE 122 mg/dL (74-106); POTASSIUM 3.5 mmol/L (3.5-5.1); SODIUM SERUM 137 mmol/L (136-145); TOTAL PROTEIN, SERUM 6.8 g/dL (6.4-8.2); UREA NITROGEN, BLOOD 8 mg/dL (7-18)
--- NOTE | 2019-01-07 10:25 | NUR ---
RN NOTES PATIENT SEEN AND EVALUATED BY DR. WHITE AT BEDSIDE WITH NO NEW ORDERS AT THIS TIME. WILL CONTINUE TO MONITOR.
[2019-01-07 16:00] VITALS: BP 163/70
[2019-01-07] MEDS: SIMVASTATIN 40 MG TABLET PO SCH (17:10)
--- NOTE | 2019-01-07 19:01 | NUR ---
RN CLOSING NOTES PATIENT IN BED AWAKE, ALERT AND ABLE TO MAKE NEEDS KNOWN. FAMILY MEMBERS AT BEDSIDE. NO ACUTE DISTRESS AT THIS TIME. RESPIRATION EVEN AND UNLABORED. SKIN IS DRY WARM TO TOUCH. IV ACCESS ON LEFT AC STILL INTACT AND PATENT. FLUSHING WELL. SURGICAL SITE DRESSING INTACT WELL. NAI ON RIGHT ABDOMEN DRAINING WELL. NOTED WITH SLIGHT REDDISH OUTPUT. NO S/S OF INFECTION AT THIS TIME. ALL NEEDS ANTICIPATED. KEPT CLEAN AND DRY. CALL LIGHT WITHIN REACH. BED LOCKED AND IN LOWEST POSITION. SAFETY MEASURES OBSERVED. WILL CONTINUE TO MONITOR. ENDORSED TO PM NURSE FOR [place].
[2019-01-07 20:00] VITALS: BP 161/71
[2019-01-08 04:00] VITALS: BP 128/60
[2019-01-08] MEDS: PIPERACILLIN /TAZOBACTAM 3.375 G in IV D5W 100 ML IV SCH ×3 (04:55→20:34)
--- NOTE | 2019-01-08 06:47 | NUR ---
RN NOTES, NO SIGNIFICANT CHANGE IN CONDITION THROUGHOUT THE NIGHT, BREATHING EVEN AND UNLABORED, NO SOB/ACUTE DISTRESS NOTED, NO S/S OF PAIN OR DISCOMFORT, ALL SAFETY MEASURES IN PLACED, 45 ML DRAINAGE IN NAI, MORPHINE FOR PAIN ADMINISTRATED X1 DURING THE NIGHT, CALL LIGHT W/I REACH, WILL ENDORSE CONTINUITY OF CARE TO ONCOMING NURSE.
[2019-01-08 07:20] LABS: BASOPHILS % (AUTO) 0.5 % (0.0-2.0); EOSINOPHILS % (AUTO) 2.6 % (0.0-6.0); HEMATOCRIT 36 % (33-45); HEMOGLOBIN 12.2 g/dL (11.5-14.8); LYMPHOCYTES # (AUTO) 2.1 /CMM (0.8-4.8); LYMPHOCYTES % (AUTO) 24.3 % (20.0-44.0); MEAN CORPUSCULAR HGB CONC 34 g/dl (31.0-36.0); MEAN CORPUSCULAR VOLUME 86 fL (82-100); MONOCYTES # (AUTO) 0.8 /CMM (0.1-1.30); NEUTROPHILS # (AUTO) 5.6 /CMM (1.8-8.9); NEUTROPHILS % (AUTO) 63.6 % (43.0-81.0); PLATELET COUNT (AUTO) 218 /CMM (150-450); RED BLOOD CELL COUNT(AUTO) 4.21 MIL/uL (4.0-5.2); WHITE BLOOD COUNT (AUTO) 8.8 K/uL (4.3-11.0)
[2019-01-08 07:22] LABS: ALANINE AMINOTRANSFERASE 151 U/L (12-78); ALBUMIN 2.9 g/dL (3.4-5.0); ALKALINE PHOSPHATASE 229 U/L (46-116); ASPARTATE AMINOTRANSFERASE 63 U/L (15-37); BILIRUBIN,TOTAL 1.1 mg/dL (0.2-1.0); CARBON DIOXIDE 27 mmol/L (21-32); CHLORIDE 104 mmol/L (98-107); GLUCOSE 99 mg/dL (74-106); POTASSIUM 3.5 mmol/L (3.5-5.1); SODIUM SERUM 140 mmol/L (136-145); TOTAL PROTEIN, SERUM 6.7 g/dL (6.4-8.2); UREA NITROGEN, BLOOD 14 mg/dL (7-18)
--- NOTE | 2019-01-08 07:30 | NUR ---
MS RN OPENING NOTE RECEIVED PT. A/OX2-3, NO ACUTE DISTRESS OR SOB NOTED. ON ROOM AIR TOLERATING WELL. NAI DRAINING SCANT SANGUINEOUS FLUID. DRESSING INTACT. BOWEL SOUNDS ACTIVE IN ALL FOUR QUADS. PT. REPORTS NOT PASSING GAS. NO SIGNS OF INFECTION AT SURGERY SITE. PATIENT REPORTS 5/10 PAIN IN ABDOMEN, DENIES NEED FOR MEDICATION. IV SITE L AC 20G SALINE LOCKED, C/D/I. BED LOCKED, LOW, SIDE RAILS UPX2, BED ALARM ON, CALL LIGHT WITHIN REACH. WILL CONTINUE TO MONITOR
[2019-01-08 08:00] VITALS: BP 156/73
[2019-01-08 08:09] VITALS: BP 156/73
[2019-01-08] MEDS: METFORMIN 500 MG TABLET PO SCH (08:52)
[2019-01-08] MEDS: ASPIRIN EC 81 MG TABLET.DR PO SCH (08:52)
[2019-01-08] MEDS: ATENOLOL 25 MG TABLET PO SCH (08:53)
[2019-01-08] MEDS: Fenofibrate 48 MG TABLET PO SCH (08:55)
[2019-01-08] MEDS: VALSARTAN 80 MG TABLET PO SCH (08:55)
[2019-01-08] MEDS: CHOLECALCIFEROL 1,000 UNIT TABLET (VIT D3) PO SCH (12:39)
[2019-01-08 16:00] VITALS: BP 122/48
[2019-01-08] MEDS: SIMVASTATIN 40 MG TABLET PO SCH (18:27)
--- NOTE | 2019-01-08 19:00 | NUR ---
MS RN CLOSING NOTE PT. FORGETFUL. FEELS URGE TO URINATE AND GETS OUT OF BED, SETTING BED ALARM OFF. IV SITE CAME OUT X2 THROUGHOUT SHIFT DUE TO THIS. NO IV SITE AT THIS TIME. ENDORSED TO DOG WALKER NURSE FLACO. PT. IS AMBULATORY, WITH A BEDSIDE COMMODE, SLIGHTLY WEAK, FALL RISK. NONSLIP SOCKS ON. REPORTS TOLERABLE PAIN IN ABDOMEN THROUGHOUT SHIFT BUT DENIES DESIRE FOR PAIN MEDICATION. NO S/S OF INFECTION AT SURGERY SITE. PATIENT HAD BOWEL MOVEMENT THIS SHIFT X1. BED IS LOCKED, LOW, SIDE RAILS UPX2, BED ALARM ON AND AUDIBLE, CALL LIGHT WITHIN REACH.
--- NOTE | 2019-01-08 19:30 | NUR ---
MS RN OPENING NOTES: PT. FORGETFUL. GETS OUT OF BED, SETTING BED ALARM OFF. IV SITE CAME OUT X2 THROUGHOUT SHIFT DUE TO THIS. ENDORSED TO INSIDE SALES RECRUITER NURSE FLACO. PT. IS AMBULATORY, WITH A BEDSIDE COMMODE, SLIGHTLY WEAK, FALL RISK. NONSLIP SOCKS ON. REPORTS TOLERABLE PAIN IN ABDOMEN THROUGHOUT SHIFT BUT DENIES DESIRE FOR PAIN MEDICATION. NO S/S OF INFECTION AT SURGERY SITE. PATIENT HAD BOWEL MOVEMENT THIS SHIFT X1. BED IS LOCKED, LOW, SIDE RAILS UPX2, BED ALARM ON AND AUDIBLE, CALL LIGHT WITHIN REACH, NO IV SITE PRESENT. WILL PLACE SOON.
[2019-01-08 20:00] VITALS: BP 123/56
--- NOTE | 2019-01-09 01:54 | NUR ---
RN MS NOTE: PT ACCIDENTALLY PULLED OUT IV. WILL PLACE NEW IV SHORTLY
[2019-01-09 04:00] VITALS: BP 128/56
[2019-01-09] MEDS: PIPERACILLIN /TAZOBACTAM 3.375 G in IV D5W 100 ML IV SCH (04:44)
--- NOTE | 2019-01-09 06:37 | NUR ---
MS RN CLOSING NOTES: PT IN BED SLEEPING COMFORTABLY. NO ACUTE DISTRESS DURING MY PM SHIFT. PT IS FORGETFUL. GETS OUT OF BED, SETTING BED ALARM OFF. IV SITE CAME OUT X2 THROUGHOUT SHIFT DUE TO THIS. WILL ENDORSED TO AM SHIFT . PT. IS AMBULATORY, WITH A BEDSIDE COMMODE, BM TIMES 1. SLIGHTLY WEAK, FALL RISK. NONSLIP SOCKS ON. REPORTS TOLERABLE PAIN IN ABDOMEN THROUGHOUT SHIFT. . BED IS LOCKED, LOW, SIDE RAILS UPX2, BED ALARM ON AND AUDIBLE, CALL LIGHT WITHIN REACH, IV SITE R HAND REPLACED, INTACT, AND RUNNING 22 G. WILL ENDORSE TO AM NURSE TO CONTINUE PLAN OF CARE.
--- NOTE | 2019-01-09 07:30 | NUR ---
MS RN OPENING NOTES PATIENT IN BED SLEEPING COMFORTABLY. EASILY AROUSABLE. ALERT AND ORIENTED X2-3 WITH EPISODES OF FORGETFULNESS. NO PAIN OR ACUTE DISTRESS AT THIS TIME. RESPIRATION EVEN AND UNLABORED. SKIN IS DRY WARM TO TOUCH. IV ACCESS ON R HAND #22G. PATENT AND FLUSHING WELL. NO S/S OF INFECTION AND INFILTRATION. ALL NEEDS ANTICIPATED. BED LOCKED AND IN LOWEST POSITION. SAFETY MEASURES OBSERVED. PLAN OF CARE DISCUSSED. CALL LIGHT WITHIN REACHED. WILL CONTINUE TO MONITOR.
[2019-01-09 07:52] LABS: BASOPHILS # (AUTO) 0.1 /CMM (0.0-0.2); BASOPHILS % (AUTO) 0.5 % (0.0-2.0); EOSINOPHILS % (AUTO) 2.6 % (0.0-6.0); HEMATOCRIT 38 % (33-45); HEMOGLOBIN 12.9 g/dL (11.5-14.8); LYMPHOCYTES # (AUTO) 2.9 /CMM (0.8-4.8); LYMPHOCYTES % (AUTO) 26.9 % (20.0-44.0); MEAN CORPUSCULAR HGB CONC 34 g/dl (31.0-36.0); MEAN CORPUSCULAR VOLUME 85 fL (82-100); MONOCYTES # (AUTO) 0.7 /CMM (0.1-1.30); MONOCYTES % (AUTO) 6.5 % (2.0-12.0); NEUTROPHILS # (AUTO) 6.8 /CMM (1.8-8.9); NEUTROPHILS % (AUTO) 63.5 % (43.0-81.0); PLATELET COUNT (AUTO) 268 /CMM (150-450); RED BLOOD CELL COUNT(AUTO) 4.42 MIL/uL (4.0-5.2); WHITE BLOOD COUNT (AUTO) 10.8 K/uL (4.3-11.0)
[2019-01-09 07:53] LABS: CALCIUM, SERUM 9.2 mg/dL (8.5-10.1); CARBON DIOXIDE 24 mmol/L (21-32); CHLORIDE 106 mmol/L (98-107); GLUCOSE 110 mg/dL (74-106); MAGNESIUM 1.7 mg/dL (1.8-2.4); PHOSPHORUS 3.3 mg/dL (2.5-4.9); POTASSIUM 3.8 mmol/L (3.5-5.1); SODIUM SERUM 141 mmol/L (136-145); UREA NITROGEN, BLOOD 16 mg/dL (7-18)
[2019-01-09 08:00] VITALS: BP 124/82
[2019-01-09] MEDS: ASPIRIN EC 81 MG TABLET.DR PO SCH (09:08)
[2019-01-09] MEDS: Fenofibrate 48 MG TABLET PO SCH (09:09)
[2019-01-09] MEDS: METFORMIN 500 MG TABLET PO SCH (09:09)
[2019-01-09] MEDS: VALSARTAN 80 MG TABLET PO SCH (09:09)
[2019-01-09] MEDS: ATENOLOL 25 MG TABLET PO SCH (09:09)
[2019-01-09] MEDS: Magnesium 1GM/D5W 100ML PREMIX 100 ML IV SCH ×2 (11:23→12:25)
[2019-01-09] MEDS: AMOX/CLAVULANATE 250 MG TABLET PO SCH ×2 (11:48→20:25)
[2019-01-09 16:00] VITALS: BP 136/55
[2019-01-09] MEDS: SIMVASTATIN 40 MG TABLET PO SCH (17:50)
[2019-01-09] MEDS ORDERED: Amox/Clavulanate PO (18:23)
--- NOTE | 2019-01-09 18:40 | NUR ---
RN CLOSING NOTES PATIENT IN BED AWAKE ALERT AND ABLE TO MAKE NEEDS KNOWN. NO PAIN OR ACUTE DISTRESS AT THIS TIME. RESPIRATION EVEN AND UNLABORED. SKIN IS DRY WARM TO TOUCH. PATIENT STABLE THROUGHOUT THE SHIFT. PATIENT ABLE TO TOLERATE MEALS AND MEDS WELL. NO ADVERSE REACTIONS AT THIS TIME. BED ALARM ARMED AND SIDERAILS X2 ARE UP. ALL NEEDS ANTICIPATED. KEPT CLEAN AND DRY. CALL LIGHT WITHIN REACHED. WILL CONTINUE TO MONITOR. BED LOCKED AND IN LOWEST POSITION. SAFETY MEASURES OBSERVED. ENDORSED TO PM NURSE FOR [place].
--- NOTE | 2019-01-09 19:29 | NUR ---
MS RN NOTES CALLED SKIP REGARDING D/C ORDER TO [facility]. AWAITING CALL BACK.
--- NOTE | 2019-01-09 19:59 | NUR ---
MS RN NOTES REPORT GIVEN TO
--- NOTE | 2019-01-09 21:28 | NUR ---
MS RN NOTES PT D/C STABLE, V/S WNL. NO RESPIRATORY DISTRESS NOTED. PT TRANSFERRED OUT VIA [facility].
== END 2019-01-09 21:51 | DRG 853 ==
LOC: ER 11:58 → MEDSG2 14:37 → TELE-TD 01-05 17:37 → MEDSG1 01-06 10:15
PROVIDERS: ADMIT Internal Medicine; ATTEND Hospitalist
PROC: 0FT44ZZ Resection of Gallbladder, Percutaneous Endoscopic Approach (ICD-10-PCS; principal; 2019-01-05)
PROC: 0FB04ZX Excision of Liver, Percutaneous Endoscopic Approach, Diagnostic (ICD-10-PCS; 2019-01-05)
DX: A41.4 Sepsis due to anaerobes (principal); K85.90 Acute pancreatitis without necrosis or infection, unspecified; I21.A1 Myocardial infarction type 2; K85.10 Biliary acute pancreatitis without necrosis or infection; K80.67 Calculus of gallbladder and bile duct with acute and chronic cholecystitis with obstruction; N39.0 Urinary tract infection, site not specified; E44.0 Moderate protein-calorie malnutrition; E66.9 Obesity, unspecified; Z98.890 Other specified postprocedural states; E83.42 Hypomagnesemia; F03.90 Unspecified dementia, unspecified severity, without behavioral disturbance, psychotic disturbance, mood disturbance, and anxiety; Z68.28 Body mass index [BMI] 28.0-28.9, adult; B96.20 Unspecified Escherichia coli [E. coli] as the cause of diseases classified elsewhere; E11.65 Type 2 diabetes mellitus with hyperglycemia; I10 Essential (primary) hypertension; K82.8 Other specified diseases of gallbladder
CPT/HCPCS: 36415; 71045-TC; 74018; 74181-TC; 78226; 80048-TC; 80053-TC; 80061-TC; 80076-TC; 81000-TC; 82728-TC; 82962-TC; 83540-TC; 83605-TC; 83690-TC; 83735-TC; 84100-TC; 84439-TC; 84443-TC; 84484-TC; 85025-TC; 85730-TC; 86850-TC; 87040-TC; 87081-TC; 87086-TC; 87186-TC; 88304-TC; 88307-TC; 88313-TC; 93307-TC; 97116-TC; 97530-TC; A9537; G0378; J1100; J1170; J2270; J2405; J2543; J3010; J3475; J3490; J7030; J7040; J7060

== ENCOUNTER 2019-04-03 10:24 | Emergency (ER) | payer MEDICARE, MEDICAID ==
[~2019-04-03] VITALS: Ht 154.9 cm; Wt 66.7 kg
[~2019-04-03 10:24] MED LIST: ASPI-1152 PO; ATEN25TA PO; Amox/Clavulanate PO; CHOL100040 PO; FENO54TA PO; METF-440 PO; OLME20TA13 PO; SIMV40TA5 PO
--- NOTE | 2019-04-03 10:30 | NUR ---
BIB [facility] FROM HOME, C/O NAUSEA/VOMITING AND ABDOMINAL PAIN SINCE THIS AM. AA/OX1, BREATHING EVEN AND UNLABORED, NO SOB NOTED, NEEDS ATTENDED, KEPT COMFORTABLE. WILL MONITOR.
[2019-04-03] MEDS ORDERED: IV NS 0.9% 1,000 ML BAG IV ONE (11:00)
[2019-04-03 11:12] LABS: BASOPHILS % (AUTO) 0.2 % (0.0-2.0); EOSINOPHILS % (AUTO) 0.4 % (0.0-6.0); HEMATOCRIT 38 % (33-45); HEMOGLOBIN 13.1 g/dL (11.5-14.8); LYMPHOCYTES # (AUTO) 0.9 /CMM (0.8-4.8); LYMPHOCYTES % (AUTO) 8.9 % (20.0-44.0); MEAN CORPUSCULAR HGB CONC 35 g/dl (31.0-36.0); MEAN CORPUSCULAR VOLUME 84 fL (82-100); MONOCYTES # (AUTO) 0.2 /CMM (0.1-1.30); MONOCYTES % (AUTO) 2.2 % (2.0-12.0); NEUTROPHILS % (AUTO) 88.3 % (43.0-81.0); PLATELET COUNT (AUTO) 235 /CMM (150-450); RED BLOOD CELL COUNT(AUTO) 4.48 MIL/uL (4.0-5.2); WHITE BLOOD COUNT (AUTO) 10.2 K/uL (4.3-11.0)
[2019-04-03 11:21] LABS: CALCIUM, SERUM 9.8 mg/dL (8.5-10.1); CARBON DIOXIDE 26 mmol/L (21-32); CHLORIDE 105 mmol/L (98-107); GLUCOSE 127 mg/dL (74-106); POTASSIUM 3.6 mmol/L (3.5-5.1); SODIUM SERUM 139 mmol/L (136-145); UREA NITROGEN, BLOOD 15 mg/dL (7-18)
[2019-04-03 11:27] LABS: ALANINE AMINOTRANSFERASE 26 U/L (12-78); ALKALINE PHOSPHATASE 127 U/L (46-116); ASPARTATE AMINOTRANSFERASE 23 U/L (15-37); BILIRUBIN,DIRECT 0.1 mg/dL (0.0-0.2); BILIRUBIN,TOTAL 0.4 mg/dL (0.2-1.0); TOTAL PROTEIN, SERUM 7.6 g/dL (6.4-8.2)
[2019-04-03] MEDS ORDERED: LOSA50TA39 PO (11:36)
[2019-04-03] MEDS ORDERED: DONE10TA44 PO (11:36)
[2019-04-03] MEDS ORDERED: ONDANSETRON HCL/PF 4 MG/2 ML VIAL ONE (11:41)
[2019-04-03 12:22] LABS: APPEARANCE,URINE Clear (CLEAR); BILIRUBIN,URINE Negative (NEGATIVE); BLOOD, URINE Trace-intact Ery/uL (NEGATIVE); COLOR,URINE Yellow (YELLOW); KETONES,URINE Trace (NEGATIVE); LEUKOCYTE ESTERASE ,URINE Negative (NEGATIVE); NITRITE, URINE Negative (NEGATIVE); PH,URINE 7.5 (5.0-8.0); PROTEIN,URINE Negative (NEGATIVE); UGLUCOSE Negative (NEGATIVE); UROBILINOGEN,URINE 0.2 EU/dL (0.2)
[2019-04-03 12:23] LABS: BACTERIA,URINE Few /HPF (None Seen); SQUAMOUS EPITHELIAL CELL,UR Few /HPF (None Seen); WBC,URINE 0-2 /HPF (0-3)
[2019-04-03] MEDS ORDERED: KETOROLAC TROMETHAMINE INJ 30 MG/ML VIAL IV ONE (12:30)
[2019-04-03] MEDS ORDERED: KETOROLAC TROMETHAMINE INJ 30 MG/ML VIAL ONE (12:56)
[2019-04-03] MEDS ORDERED: ONDANSETRON HCL/PF 4 MG/2 ML VIAL IV ONE (13:30)
--- NOTE | 2019-04-03 13:58 | NUR ---
Patient ambulatory with a steady gait. IV removed. Catheter intact and site benign. Pressure and 4x4 applied to site. No bleeding noted.Patient discharged to home in stable condition. Written and verbal after care instructions given to daughter and verbalizes understanding of instruction.
[2019-04-03 14:02] VITALS: BP 152/87
== END 2019-04-03 14:02 | disposition home or self-care (01) ==
LOC: ER 10:26
DX: R10.84 Generalized abdominal pain (principal); R11.2 Nausea with vomiting, unspecified; I10 Essential (primary) hypertension; E78.00 Pure hypercholesterolemia, unspecified; E11.9 Type 2 diabetes mellitus without complications; Z98.890 Other specified postprocedural states; Z79.899 Other long term (current) drug therapy; Z79.84 Long term (current) use of oral hypoglycemic drugs; Z79.82 Long term (current) use of aspirin
CPT/HCPCS: 36415; 71045; 74176; 80048; 80076; 81001; 83605; 84145; 84484; 85025; 85730; 87040 ×2; 87086; 93005; 96361; 96374; 96375; 99284; J1885; J2405; J7030; 81000-TC